=== PATIENT | female | born 1960 | race Caucasian/White ===

== ENCOUNTER → 2024-01-31 10:10 | Outpatient (REF) | payer MEDICARE, OTHER, SELFPAY | LOC: RAD 10:10 | PROVIDERS: ATTENDING PHYSICIAN Internal Medicine Endocrinology, Diabetes & Metabolism; FAMILY PHYSICIAN Family Medicine | DX: M81.0 Age-related osteoporosis without current pathological fracture (principal) | CPT/HCPCS: 77080 ==

== ENCOUNTER → 2024-09-17 13:04 | Outpatient (REF) | payer MEDICARE, OTHER, SELFPAY | LOC: WDC 13:04 | PROVIDERS: ATTENDING PHYSICIAN Obstetrics & Gynecology Gynecology; FAMILY PHYSICIAN Family Medicine | DX: Z12.31 Encounter for screening mammogram for malignant neoplasm of breast (principal) | CPT/HCPCS: 77063; 77067 ==